=== PATIENT | male | born 1990 | race Caucasian/White ===

== ENCOUNTER 2018-11-24 15:25 | Emergency (ER) | payer OTHER ==
[~2018-11-24] VITALS: Ht 167.6 cm; Wt 95.5 kg
[~2018-11-24 15:25] MED LIST: CYCL10TA7 PO; HYDR-4011 PO; IBUP800T48 PO
[2018-11-24 15:48] VITALS: BP 166/63; PULSE 64; RESP 16; Ht 167.6 cm; Wt 95.5 kg
[2018-11-24] MEDS ORDERED: KETOROLAC 30 MG INJ IM STA (17:31)
--- NOTE | 2018-11-24 17:39 | ERD ---
ER Documentation Chief Complaint Chief Complaint sharp lower back pain that radiates mid upper back x1 day HPI 28-year-old male presents with back pain that began yesterday after pushing his car after its battery . He has mild pain in first but then the pain is gotten worse and then was reaggravated today when he skateboarding. He did not fall. He has no bowel or bladder incontinence. No saddle anesthesia. He took Motrin 600 at home which does state helped a little bit. ROS All systems reviewed and are negative except as per history of present illness. Allergies Allergies: Coded Allergies: No Known Allergy (Unverified , 11/24/18) PMhx/Soc Medical and Surgical Hx: pt denies Surgical Hx Hx Respiratory Disorders: Yes (asthma) Hx Alcohol Use: Yes (socially) Hx Substance Use: Yes (marijuana) Hx Tobacco Use: Yes Smoking Status: Current every day smoker FmHx Family History: No diabetes Physical Exam Vitals Vital Signs Date Temp Pulse Resp B/P (MAP) Pulse Ox O2 O2 Flow FiO2 Time Delivery Rate 11/24/18 98.0 64 16 166/63 99 15:48 (97) Physical Exam Const: No acute distress Head: Atraumatic Eyes: Normal Conjunctiva ENT: Normal External Ears, Nose and Mouth. Neck: Full range of motion. No meningismus. Resp: Clear to auscultation bilaterally Cardio: Regular rate and rhythm, no murmurs Back Exam: Compartments: Soft Motor: Normal flexion and extension of bilateral hip/knee/ankle/foot Sensation: Intact to light touch throughout Bones: No midline TTP Results 24 hrs Current Medications Medications Dose Sig/Kristina Start Time Status Last (Trade) Ordered Route PRN Stop Time Admin Dose Reason Admin Ketorolac 30 mg ONCE STAT 11/24/18 DC Tromethamine IM 17:31 (Toradol) 11/24/18 17:32 1 tab ONCE ONCE 11/24/18 Acetaminophen PO 18:00 / 11/24/18 18:01 Hydrocodone Bitart ([place] (5/325)) Procedures/MDM The differential diagnosis includes but is not limited to muscle strain, ligament strain, contusion, arthritis, discogenetic disease, non- musculoskeletal, cauda equina syndrome, cord compression, abscess and others. Toradol and [place] given. Discharged with ibuprofen Flexeril and small amount of [place]. Patient counseled regarding my diagnostic impression and care plan. Prior to discharge all questions answered. Pt agrees with treatment plan and understands strict return precautions. Pt is instructed to follow up with primary care provider within 24-48 hours. Precautionary instructions provided including instructions to return to the ER if not improving or for any worsening or changing symptoms or concerns. Departure Diagnosis: Primary Impression: Back pain Condition: Stable WOLFGANG VALDES PA-C Nov 24, 2018 17:39
[2018-11-24] MEDS ORDERED: HYDROCODONE/APAP (5/325) TAB PO ONE (18:00)
== END 2018-11-24 19:04 | disposition home or self-care (01) ==
LOC: FTE 15:25
DX: M54.5 Low back pain (principal)
CPT/HCPCS: J1885; Z7502; Z7610; 99283